=== PATIENT | male | born 1960 | race Two or more races ===

== ENCOUNTER 2023-08-08 19:41 | Emergency (ER) | payer BC ==
[~2023-08-08] VITALS: Ht 162.6 cm; Wt 95.3 kg
[2023-08-08] MEDS ORDERED: FINASTERIDE5 MG PO (20:33)
[2023-08-08] MEDS ORDERED: BUPROPION XL300 MG PO (20:33)
[2023-08-08] MEDS ORDERED: ATENOLOL25 MG PO (20:34)
[2023-08-08] MEDS ORDERED: SERTRALINE HCL100 MG PO (20:34)
== END 2023-08-08 21:38 | disposition home or self-care (01) ==
LOC: ER 19:42
DX: L55.9 Sunburn, unspecified (principal)